=== PATIENT | male | born 1975 | race Caucasian/White ===

== ENCOUNTER → 2017-02-17 | Day surgery (SDC) | payer OTHER ==
[2017-02-06 12:37] LABS: BASOPHILS % 0.5 % (0.0-1.0); EOSINOPHILS # (AUTO) 0.2 (0.0-0.4); HEMATOCRIT 43.9 % (38.2-49.6); HEMOGLOBIN 15.5 g/dL (14.0-18.0); LYMPHOCYTES # (AUTO) 2.6 (1.0-3.2); MEAN CORPUSCULAR HEMOGLOBIN 30.9 pg (28-32); MEAN CORPUSCULAR HGB CONC 35.3 g/dL (31-35); MEAN CORPUSCULAR VOLUME 87.6 fL (81-99); MONOCYTES # (AUTO) 0.6 (0.2-0.8); NEUTROPHILS # (AUTO) 4.7 (2.1-6.9); NEUTROPHILS % 58.2 % (38.7-80.0); PLATELET COUNT 254 x10e3/uL (140-360); RED BLOOD COUNT 5.01 x10e6/uL (4.3-5.7); RED CELL DISTRIBUTION WIDTH 11.7 % (11.7-14.4)
[2017-02-06 13:05] LABS: ALBUMIN 3.9 g/dL (3.5-5.0); ALBUMIN/GLOBULIN RATIO 1.1 (0.8-2.0); ANION GAP 12.5 mmol/L (8-16); CALCIUM 9.2 mg/dL (8.4-10.2); CREATININE, SERUM 1.38 mg/dL (0.72-1.25); POTASSIUM 4.5 mmol/L (3.5-5.1)
[~2017-02-17] MED LIST: ACETAMINOPHEN 1000 MG/100 ML IV ONE; ACETAMINOPHEN/CODEINE 300MG - 30MG TAB ONE; AMPICILLIN SOD 1 GM/NS 50ML 50 ML IV ONE; ASPIRIN 325 MG TAB ONE; BELLADONNA/OPIUM 60 MG SUPP PR ONE; DEXAMETHASONE SOD PHOS INJ 4 MG/ML VIAL ONE; FENTANYL CITRATE/PF 100MCG/2 ML INJ ONE; FLUCONAZOLE100 MG PO; GENTAMICIN 80MG/NS 100 ML 200 ML IV ONE; HYDROMORPHONE 2MG/ML INJ ONE; IBUPROFEN 400 MG TAB PO ONE; IOPAMIDOL 610MG/1ML 300 MG/ML VIAL IV ONE; LIDOCAINE HCL 2% LOCAL INJ 5 ML SDV VIAL INJ ONE; LISINOPRIL10 MG PO; MEPERIDINE HCL INJ 50 MG/ML INJ ONE; MIDAZOLAM HCL 2 MG/2 ML VIAL ONE; MORPHINE SULFATE 2 MG/ML SYR ONE; NITROFURANTOIN100 MG PO; ONDANSETRON HCL INJ 2 MG/ML VIAL ONE; OXYBUTYNIN CHLORIDE 5 MG TAB PO ONE; PROPOFOL IV EMULSION 10 MG/ML 20 ML VIAL ONE; SEVOFLURANE INHAL SOLN 250 ML PEN BTL ONE; TRAMADOL HCL 50 MG TAB ONE
--- NOTE | 2017-02-17 08:04 | Diagnostic Imaging Report ---
PROCEDURE:X-RAY ABDOMEN - KUB COMPARISON:Abdomen one view 02/07/2017. INDICATIONS:PRE-OPERATIVE XRAY FOR KIDNEY STONE SURGERY FINDINGS: There is a non-obstructed bowel-gas pattern. Bilateral ureteral stents are present. There are no calcifications projected over the renal shadows, expected course of the ureters or bladder. There are no acute osseous abnormalities. The lung bases are clear. CONCLUSION: Bilateral ureteral stents. Dictated by: German Don M.D. on 02/17/2017 at 8:11 Electronically approved by: German Don M.D. on 02/17/2017 at 8:11
--- NOTE | 2017-04-01 05:20 | Operative Report ---
DATE OF PROCEDURE: February 17, 2017 PREOPERATIVE DIAGNOSES 1. Bilateral indwelling ureteral stents. 2. Nephrolithiasis. POSTOPERATIVE DIAGNOSES 1. Bilateral indwelling ureteral stents. 2. Nephrolithiasis. 3. Bilateral ureteral strictures. 4. Bilateral hydronephrosis due to ureteral strictures. OPERATIONS PERFORMED 1. Cystourethroscopy with complicated removal of bilateral indwelling ureteral stents (separate procedure performed for the diagnosis of stents done with separate scope). 2. Right ureteroscopy with dilation and calibration of ureteral stricture (separate procedure performed for diagnosis of the stricture). 3. Right flexible ureteropyeloscopy with stone manipulation and extraction (separate procedure performed for the right nephrolithiasis). 4. Cystourethroscopy with insertion of right indwelling ureteral stent (separate procedure performed to relieve the hydronephrosis). 5. Left ureteroscopy with dilation and calibration of ureteral stricture (separate procedure performed for diagnosis of the stricture). 6. Cystourethroscopy with insertion of left indwelling ureteral stent (separate procedure performed to relieve the hydronephrosis). 7. Radiological services for supervision and interpretation of ureteroscopy. 8. Interpretation of retrograde ureteropyelography. 9. Supervision of fluoroscopy. No radiologist present. ANESTHESIA: General. COMPLICATIONS: None. CLINICAL SUMMARY: Wolfgang Castaneda is a 41-year-old man who had a previous ureteral stone. 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 The patient underwent left ureteroscopy with manipulation and laser of a stone and placement of a stent. A ureteral injury occurred and there was extravasation. Right ureteroscopy was unsuccessful; however, stent was placed. The patient subsequently developed a complicated urinary tract infection and was placed on long-term broad-spectrum antibiotics. These antibiotics were culture-specific antibiotics and were continued upon my assumption of his urological care. The patient has been provided with an adequately long course of culture-specific antibiotics and is brought to the operating room today for removal of his stents and evaluation and management of his urolithiasis and urinary tract system. He is aware of the risks of bleeding, infection, injury to adjacent structures, need for additional procedures, and he elected to proceed. OPERATIVE PROCEDURE IN DETAIL: Informed consent was verified. Wolfgang Castaneda was properly identified, taken to the operating room, and placed on the cystoscopy table in the supine position. Anesthesia was uneventfully begun. The patient was then carefully and gently re-positioned in the dorsal lithotomy position with all pressure points carefully well padded. His genitalia were prepared and draped in the usual sterile fashion. The 22.5-Senegalese cystoscope sheath with the visual obturator in place was atraumatically inserted in patient's urethra. It was inserted down the unremarkable distal urethra through some hyperemia but no stricturing at the bulbar region. The sphincteric region was normal. The prostatic bed was normal and nonobstructive. We entered the patient's bladder where panendoscopy revealed that the right ureteral stent was crossing the trigone and intertwined with the left ureteral stent which seemed to be appropriately positioned. The stents appeared smaller than the normal sized stents that we utilized. A guidewire was then placed alongside the right stent up to the level of the patient's kidney. That stent was grasped, negotiated loose from its intertwined counterpart and extracted. This stent was 5-Senegalese in size and contained a fine film of sand and was plugged with calcification and encrustation. Semirigid ureteroscope was then inserted alongside the stent and guided into the right ureter. The right ureter was narrowed. We dilated across this narrowed portion at the level of the distal ureter. We then left a secondary guidewire. The flexible ureteroscope was then passed over the secondary guidewire to the proximal ureter where there was additional stricturing and hyperemia. We dilated across this region utilizing the flexible ureteroscope which we then negotiated into the renal pelvis. Panendoscopy of the intrarenal collecting system revealed a stone. This stone was grasped with a nitinol tipless basket and atraumatically extracted. We re-inserted the ureteroscope back up into the kidney and performed panendoscopy which revealed Lorenzo plaques throughout. A guidewire was then left in place and then we exited as we carefully examined this ureter. This ureter appeared to be rather reactive which we believe is related to the stent which was plugged and nonfunctional as well as the previous surgery. With cystoscopic and fluoroscopic guidance, an indwelling ureteral stent was then placed. It was coiled in patient's kidney as well as patient's bladder. The retaining suture was cut short. A guidewire was then placed into the left ureter alongside the existing stent and guided at the level of the patient's kidney. The stent was then grasped and fully removed and discarded. Semi-rigid ureteroscope was then placed alongside the guidewire up into the left ureter. The distal ureter was narrowed here as well. Secondary guidewire was placed. The flexible ureteroscope was then placed over the secondary guidewire and brought more proximally where we found similar findings to the right side with a narrowed right proximal ureter. We saw the region which we believed was the region that was traumatized and extravasated. We negotiated across this region and entered the patient's kidney where we identified hydronephrosis, upper collecting fullness, and Lorenzo plaques throughout. No suspicious and specific stones could be identified at this time on the left hand side. We carefully exited, and with cystoscopic and fluoroscopic guidance, a left-sided indwelling ureteral stent was then placed. It was coiled in the patient's kidney as well as the patient's bladder. The retaining suture was cut short. Interpretation of retrograde ureteropyelography: Contrast was instilled in retrograde fashion via the ureteroscope. There was hydronephrosis present on the left side as well as prominent and more mild hydronephrosis on the right hand side. The stents were in good position, coiled in the patient's kidneys as well as well as in the patient's bladder at the end the case. The patient's bladder was then drained. Cystoscope was withdrawn. A belladonna and opium suppository was placed revealing a small 20-g prostate, smooth, nonfluctuant without any nodules. The patient was then uneventfully reversed from anesthesia and taken to recovery room in stable condition. There were no complications of the procedure. The patient tolerated the procedure well. Explicit postop instructions were given and we will plan on returning to the operating room in several weeks to remove the patient's stents, perform bilateral ureteroscopy, and hopefully render the patient stone-free and stent-free. Job#: [id number] CF
== END | disposition home or self-care (01) ==
LOC: OR 05:14
PROVIDERS: ATTEND Urology
DX: N20.0 Calculus of kidney (principal); N13.1 Hydronephrosis with ureteral stricture, not elsewhere classified; Z46.6 Encounter for fitting and adjustment of urinary device; N28.89 Other specified disorders of kidney and ureter; Z87.440 Personal history of urinary (tract) infections; I12.9 Hypertensive chronic kidney disease with stage 1 through stage 4 chronic kidney disease, or unspecified chronic kidney disease; N18.9 Chronic kidney disease, unspecified; Z01.810 Encounter for preprocedural cardiovascular examination; Z01.812 Encounter for preprocedural laboratory examination
CPT/HCPCS: 36415; 52332; 52344; 52352; 74000; 74420; 80053; 83970; 84550; 85025; 88300; 93005; C1766; C2617; J0290; J1100; J1170; J1580; J2001; J2175; J2250; J2270; J2405; Q9967

== ENCOUNTER → 2017-03-07 | Day surgery (SDC) | payer OTHER ==
[~2017-03-07] MED LIST changes: -ACETAMINOPHEN 1000 MG/100 ML IV ONE; -ACETAMINOPHEN/CODEINE 300MG - 30MG TAB ONE; -AMPICILLIN SOD 1 GM/NS 50ML 50 ML IV ONE; -ASPIRIN 325 MG TAB ONE; -DEXAMETHASONE SOD PHOS INJ 4 MG/ML VIAL ONE; +GENTAMICIN 80MG/NS 100 ML 100 ML IV ONE; -GENTAMICIN 80MG/NS 100 ML 200 ML IV ONE; -HYDROMORPHONE 2MG/ML INJ ONE; -IBUPROFEN 400 MG TAB PO ONE; +LEVOFLOXACIN 500MG/D5W 100ML 100 ML IV ONE; -MEPERIDINE HCL INJ 50 MG/ML INJ ONE; -MORPHINE SULFATE 2 MG/ML SYR ONE; -OXYBUTYNIN CHLORIDE 5 MG TAB PO ONE; -TRAMADOL HCL 50 MG TAB ONE
--- NOTE | 2017-04-28 07:41 | Operative Report ---
DATE OF PROCEDURE: March 07, 2017 PREOPERATIVE DIAGNOSES: 1. Nephrolithiasis. 2. Bilateral indwelling ureteral stents. POSTOPERATIVE DIAGNOSES: 1. Nephrolithiasis. 2. Bilateral indwelling ureteral stents. OPERATIONS PERFORMED: 1. Cystourethroscopy with complicated removal of bilateral indwelling ureteral stents (separate procedure performed for the diagnosis of stents done with separate scope). 2. Bilateral ureteroscopy with stone manipulation (separate procedure performed for diagnosis of the stones done with a separate scope). 3. Radiological services for supervision and interpretation of ureteroscopy. 4. Interpretation of retrograde ureteropyelography. 5. Supervision of fluoroscopy, no radiologist present. ANESTHESIA: General. COMPLICATIONS: None. CLINICAL SUMMARY: Wolfgang Castaneda is a 41-year-old man with a urological history that is significant for bilateral urolithiasis. Patient has indwelling ureteral stents that were changed several weeks earlier by me. At that point in time, bilateral ureteral strictures were dilated. Stone management was also performed. The patient is brought to the operating room today in order to render him stent-free and stone-free. He is aware of the risks of bleeding, infection, injury to adjacent structures, need for additional procedures, and elected to proceed. OPERATIVE PROCEDURE IN DETAIL: Informed consent was verified. Wolfgang Castaneda was properly identified, taken to the operating room and placed on the cystoscopy table in the supine position. Anesthesia was uneventfully begun. The patient was then carefully and gently repositioned in dorsal lithotomy position with all pressure points well padded. His genitalia were prepared and draped in usual sterile fashion. The 22.5-Cypriot cystoscope sheath with the visual obturator in place was atraumatically inserted in patient's urethra. It was guided down the unremarkable urethra through the prostate bed which was unremarkable and into the patient's bladder where panendoscopy revealed some fine sand. Stents were noted to be emerging from both ureteral orifices. A guidewire was then placed alongside the stent and guided to the level of the patient's left kidney. The stent was then grasped, completely removed, and discarded. Flexible ureteroscope was then placed over the guidewire and guided to the level of the patient's kidney. Careful panendoscopy of the intrarenal collecting system revealed Lorenzo's plaques. There was some very fine sand that was noted. No stones significant in size were noted. We irrigated the fine sand loose from the mucosa and it should be easily passable. There were no stones that were large enough to be grasped by a basket. Because we irrigated to flush out all fine sand and we carefully examined the ureter as we exited, it exhibited no stricture, no injury, no extravasation, and no tumors. An identical procedure with identical findings was performed on right hand side. Interpretation of retrograde ureteropyelography: Contrast was instilled in retrograde fashion bilaterally. There were no tumors, there were no radiographically visible stones. Unobstructed drainage was observed bilaterally fluoroscopically. There was no hydronephrosis. The patient's bladder was then drained. Cystoscope was withdrawn. Belladonna and opium suppository was placed, and the patient was uneventfully reversed from anesthesia and taken to recovery room in stable condition. There were no complications to the procedure. The patient tolerated the procedure well. 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 We plan to follow the patient up on a long-term basis. We plan to perform metabolic stone workup and of course long-term urological followup. Job#: [id number]
== END | disposition home or self-care (01) ==
LOC: OR 08:55
PROVIDERS: ATTEND Urology
DX: N20.0 Calculus of kidney (principal); Z46.6 Encounter for fitting and adjustment of urinary device; N28.89 Other specified disorders of kidney and ureter; Z87.440 Personal history of urinary (tract) infections; I10 Essential (primary) hypertension
CPT/HCPCS: 52352; 74420; J1580; J1956; J2001; J2250; J2405; Q9967

== ENCOUNTER → 2017-03-26 | Outpatient (CLI) | payer OTHER ==
[~2017-03-26] MED LIST changes: -BELLADONNA/OPIUM 60 MG SUPP PR ONE; -FENTANYL CITRATE/PF 100MCG/2 ML INJ ONE; +FUROSEMIDE INJ 10 MG/ML 4 ML VIAL ONE; -GENTAMICIN 80MG/NS 100 ML 100 ML IV ONE; -IOPAMIDOL 610MG/1ML 300 MG/ML VIAL IV ONE; -LEVOFLOXACIN 500MG/D5W 100ML 100 ML IV ONE; -LIDOCAINE HCL 2% LOCAL INJ 5 ML SDV VIAL INJ ONE; -MIDAZOLAM HCL 2 MG/2 ML VIAL ONE; -ONDANSETRON HCL INJ 2 MG/ML VIAL ONE; -PROPOFOL IV EMULSION 10 MG/ML 20 ML VIAL ONE; -SEVOFLURANE INHAL SOLN 250 ML PEN BTL ONE
--- NOTE | 2017-03-26 20:08 | Diagnostic Imaging Report ---
Renal Scan with Lasix Washout Clinical information: 41 M with renal calculi. Recent ureteral stents removed 02/2017. Technique: Following intravenous administration of 10 mCi of Tc-99m MAG3, dynamic images of the kidneys in the posterior projection were obtained through 40 minutes. Lasix 40 mg was administered intravenously at 10 minutes post injection of the tracer. Report: Left kidney: Perfusion of the left kidney is prompt. The kidney has a reniform shape with a small cortical defect in the upper pole. Extraction of tracer from the blood pool is normal. Clearance of tracer from the renal parenchyma is prompt. The pelvicalyceal system is not dilated although prominent calyx is noted in the upper pole. Increased pooling of tracer is seen in the upper pole calyx. Drainage of tracer from the pelvicalyceal system is prompt and adequate prior to administration of Lasix. No significant stasis of tracer is seen within the left ureter. Right kidney: Perfusion to the right kidney is prompt. The right kidney has a normal reniform shape. The right kidney is slightly smaller than the left kidney. Extraction of tracer by the renal parenchyma is normal. Clearance of tracer from the renal parenchyma is prompt. The pelvicalyceal system is not dilated. Physiologic pooling of tracer within the pelvicalyceal system is seen. Drainage of tracer from the pelvicalyceal system is prompt and adequate prior to administration of Lasix. No significant stasis of tracer is seen within the right ureter. Differential renal function: The left kidney contributes 52% of total renal function and the right kidney contributes 48% (normal 43-57%). Impression: 1. The function of the left kidney is generally normal. A very small scar is seen in the upper pole and is associated with a prominent calyx. No hydronephrosis is present. No physiologically significant obstruction of the renal collecting system is present. 2. The function of the right kidney is generally normal. No hydronephrosis is present. No physiologically significant obstruction of the renal collecting system is present. 3. The differential renal function is preserved. Signed by: Dr. Melody Gregorio M.D. on 03/26/2017 8:04 PM
== END ==
LOC: NM 13:38
PROVIDERS: ATTEND Urology
DX: N20.0 Calculus of kidney (principal)
CPT/HCPCS: 78708; A9562; J1940

== ENCOUNTER → 2017-10-20 | Outpatient (CLI) | payer OTHER ==
[~2017-10-20] MED LIST changes: -FUROSEMIDE INJ 10 MG/ML 4 ML VIAL ONE
--- NOTE | 2017-10-20 19:41 | Diagnostic Imaging Report ---
Renal Scan with Lasix Washout Clinical information: 42 M with hydronephrosis and renal calculi Comparison: Prior renal scan with Lasix 03/26/2017 Technique: Following intravenous administration of 10 mCi of Tc-99m MAG3, dynamic images of the kidneys in the posterior projection were obtained through 40 minutes. Lasix 40 mg was administered intravenously at 10 minutes post injection of the tracer. Report: Left kidney: Perfusion of the left kidney is prompt. The kidney has a reniform shape with a small cortical defect in the upper pole. Extraction of tracer from the blood pool is normal. Clearance of tracer from the renal parenchyma is prompt. The pelvicalyceal system is not dilated although prominent calyx is noted in the upper pole. Increased pooling of tracer is seen in the upper pole calyx. Drainage of tracer from the pelvicalyceal system is prompt and adequate prior to administration of Lasix. No significant stasis of tracer is seen within the left ureter. Right kidney: Perfusion to the right kidney is prompt. The right kidney has a normal reniform shape. The right kidney is slightly smaller than the left kidney. Extraction of tracer by the renal parenchyma is normal. Clearance of tracer from the renal parenchyma is prompt. The pelvicalyceal system is not dilated. Physiologic pooling of tracer within the pelvicalyceal system is seen. Drainage of tracer from the pelvicalyceal system is prompt and adequate prior to administration of Lasix. No significant stasis of tracer is seen within the right ureter. Differential renal function: The left kidney contributes 52% of total renal function and the right kidney contributes 48% (normal 43-57%), previously left 52% and right kidney 48% also. Impression: 1. The function of the left kidney is generally normal. A very small scar is seen in the upper pole and is associated with a prominent calyx. No hydronephrosis is present. No physiologically significant obstruction of the renal collecting system is present. The appearance of the kidney and its function and drainage pattern are unchanged compared to the prior renal scan with Lasix of 03/26/2017. 2. The function of the right kidney is generally normal. No hydronephrosis is present. No physiologically significant obstruction of the renal collecting system is present. The appearance of the kidney and its function and drainage pattern are unchanged compared to the prior renal scan with Lasix of 03/26/2017. 3. The differential renal function is preserved and is also unchanged compared to the prior renal scan with Lasix of 03/26/2017. Signed by: Dr. Melody Gregorio M.D. on 10/20/2017 7:37 PM
== END ==
LOC: NM 13:57
PROVIDERS: ATTEND Urology
DX: N13.5 Crossing vessel and stricture of ureter without hydronephrosis (principal)
CPT/HCPCS: 78708; A9562

== ENCOUNTER → 2018-03-31 | Day surgery (SDC) | payer OTHER ==
[~2018-03-31] MED LIST changes: +BUPIVACAINE 0.25% 30ML SDV INJ ONE; +CLINDAMYCIN 300MG 50 ML IV ONE; +FENTANYL CITRATE/PF 100MCG/2 ML INJ ONE; +KETOROLAC TROMETHAMINE 30 MG/ML VIAL ONE; +LEVOFLOXACIN 500MG/D5W 100ML 100 ML IV ONE; +LIDOCAINE HCL 2% LOCAL INJ 5 ML SDV VIAL INJ ONE; +NEOSTIGMINE 1 MG/ML 10ML VIAL ONE; +PROPOFOL IV EMULSION 10 MG/ML 20 ML VIAL ONE; +TERBINAFINE HC250 MG PO
--- OUTSIDE RECORDS SUMMARY | 2018-03-31 05:15 | XMS REPORT ---
Author Author [facility] Address Unknown Phone Unavailable Care Team Providers Care Gardening Instructor Name Role Phone JUDITH NAIK Unavailable Unavailable Rani FLOWERS Unavailable Unavailable Problems This patient has no known problems. Allergies, Adverse Reactions, Alerts This patient has no known allergies or adverse reactions. Medications This patient has no known medications. Results Test Description Test Time Test Comments Text Results Atomic Results Result Comments RENAL SCAN W/LASIX 2017-10-20 19:25:00 [place] [address] Patient Name: SOPHIA CASTRO MR #: [id number] : 1975 Age/Sex: 42/M Req #: [id number] Adm Physician: Ordered by: JUDITH NAIK MD Report #: [id number] Location: [place] Room/Bed: Procedure: [id number] NM/RENAL SCAN W/LASIX Exam Date: 10/20/17 Exam Time: 1420 REPORT STATUS: Signed Renal Scan with Lasix Washout Clinical information: 42 M with hydronephrosis and renal calculi Comparison: Prior renal scan with Lasix 03/26/2017 Technique: Following intravenous administration of 10 mCi of Tc- 99m MAG3, dynamic images of the kidneys in the posterior projection were obtained through 40 minutes. Lasix 40 mg was administered intravenously at 10 minutes post injection of the tracer. Report: Left kidney: Perfusion of the left kidney is prompt. The kidney has a reniform shape with a small cortical defect in the upper pole. Extraction of tracer from the blood pool is normal. Clearance of tracer from the renal parenchyma is prompt. The pelvicalyceal system is not dilated although prominent calyx is noted in the upper pole. Increased pooling of tracer is seen in the upper pole calyx. Drainage of tracer from the pelvicalyceal system is prompt and adequate prior to administration of Lasix. No significant stasis of tracer is seen within the left ureter. Right kidney: Perfusion to the right kidney is prompt. The right kidney has a normal reniform shape. The right kidney is slightly smaller than the left kidney. Extraction of tracer by the renal parenchyma is normal. Clearance of tracer from the renal parenchyma is prompt. The pelvicalyceal system is not dilated. Physiologic pooling of tracer within the pelvicalyceal system is seen. Drainage of tracer from the pelvicalyceal system is prompt and adequate prior to administration of Lasix. No significant stasis of tracer is seen within the right ureter. Differential renal function: The left kidney contributes 52% of total renal function and the right kidney contributes 48% (normal 43-57%), previously left 52% and right kidney 48% also. Impression: 1. The function of the left kidney is generally normal. A very small scar is seen in the upper pole and is associated with a prominent calyx. No hydronephrosis is present. No physiologically significant obstruction of the renal collecting system is present. The appearance of the kidney and its function and drainage pattern are unchanged compared to the prior renal scan with Lasix of 03/26/2017. 2. The function of the right kidney is generally normal. No hydronephrosis is present. No physiologically significant obstruction of the renal collecting system is present. The appearance of the kidney and its function and drainage pattern are unchanged compared to the prior renal scan with Lasix of 03/26/2017. 3. The differential renal function is preserved and is also unchanged compared to the prior renal scan with Lasix of 03/26/2017. Signed by: Dr. Homar Gregorio M.D. on 10/20/2017 7:37 PM Dictated By: HOMAR GREGORIO MD 36 Transcribed By: JORGE on 10/20/171936 COPY TO: JUDITH NAIK MD RENAL SCAN W/LASIX [facility] [address] [place] [address] Patient Name: SOPHIA CASTRO MR #: [id number] : 1975 Age/Sex: 41/M Req #: [id number] Adm Physician: Ordered by: JUDITH NAIK MD Report #: [id number] Location: [place] Room/Bed: Procedure: [id number] NM/RENAL SCAN W/LASIX Exam Date: 03/26/17 Exam Time: 1400 REPORT STATUS: Signed Renal Scan with Lasix Washout Clinical information: 41 M with renal calculi. Recent ureteral stents removed 02/2017. Technique: Following intravenous administration of 10 mCi of Tc-99m MAG3, dynamic images of the kidneys in the posterior projection were obtained through 40 minutes. Lasix 40 mg was administered intravenously at 10 minutes post injection of the tracer. Report: Left kidney: Perfusion of the left kidney is prompt. The kidney has a reniform shape with a small cortical defect in the upper pole. Extraction of tracer from the blood pool is normal. Clearance of tracer from the renal parenchyma is prompt. The pelvicalyceal system is not dilated although prominent calyx is noted in the upper pole. Increased pooling of tracer is seen in the upper pole calyx. Drainage of tracer from t he pelvicalyceal system is prompt and adequate prior to administration of Lasix. No significant stasis of tracer is seen within the left ureter. Right kidney: Perfusion to the right kidney is prompt. The right kidney has a normal reniform shape. The right kidney is slightly smaller than the left kidney. Extraction of tracer by the renal parenchyma is normal. Clearance of tracer from the renal parenchyma is prompt. The pelvicalyceal system is not dilated. Physiologic pooling of tracer within the pelvicalyceal system is seen. Drainage of tracer from the pelvicalyceal system is prompt and adequate prior to administration of Lasix. No significant stasis of tracer is seen within the right ureter. Differential renal function: The left kidney contributes 52% of total renal function and the right kidney contributes 48% (normal 43-57%). Impression: 1. The function of the left kidney is generally normal. A very small scar is seen in the upper pole and is ass ociated with a prominent calyx. No hydronephrosis is present. No physiologically significant obstruction of the renal collecting system is present. 2. The function of the right kidney is generally normal. No hydronephrosis is present. No physiologically significant obstruction of the renal collecting system is present. 3. The differential renal function is preserved. Signed by: Dr. Homar Gregorio M.D. on 03/26/2017 8:04 PM Dictated By: HOMAR GREGORIO MD 03 Transcribed By: JORGE on 03/26/172003 COPY TO: JUDITH CLAYTON MD ABDOMEN-1VIEW (KUB) [place] [address] Patient Name: SOPHIA CASTRO MR #: [id number] : 1975 Age/Sex: 41/M Req #: [id number] Adm Physician: Ordered by: JUDITH NAIK MD Report #: [id number] Location: OR Room/Bed: Procedure: [id number] DX/ABDOMEN-1VIEW (KUB) Exam Date: 02/17/17 Exam Time: 0617 REPORT STATUS: Signed PROCEDURE: X-RAY ABDOMEN - KUB COMPARISON: Abdomen one view 02/07/2017. INDICATIONS: PRE-OPERATIVE XRAY FOR KIDNEY STONE SURGERY FINDINGS: There is a non-obstructed bowel-gas pattern. Bilateral ureteral stents are present. There are no calcifications projected over the renal shadows, expected course of the ureters or bladder. There are no acute osseous abnormalities. The lung bases are clear. CONCLUSION: Bilateral ureteral stents. Dictated by: Ever Sorensen M.D. on 02/17/2017 at 8:11 Electronically approved by: Ever Sorensen M.D. on 02/17/2017 at 8:11 Dictated By: EVER SORENSEN MD 0 Transcribed By: CARLIE on 02/17/17810 COPY TO: JUDITH NAIK MD ABDOMEN-1VIEW (KUB) [place] [address] Patient Name: SOPHIA CASTRO MR #: [id number] : 1975 Age/Sex: 41/M Req #: [id number] Adm Physician: Ordered by: ELIZA CHO PROCESS SAFETY MANAGER Report #: [id number] Location: ER Room/Bed: Procedure: [id number] DX/ABDOMEN-1VIEW (KUB) Exam Date: 02/07/17 Exam Time: 1335 REPORT STATUS: Signed PROCEDURE: X-RAY ABDOMEN - KUB COMPARISON: None. INDICATIONS: ONGOING KIDNEY PAIN FINDINGS: There are bilateral double-J ureteral stents. Vague calcification is noted adjacent to the superior double-J on the right side. On the left side adjacent to the superior double-J are two surgical clips. There are no dilated loops of bowel to suggest obstruction. There are no masses. There is no evidence of free air. No acute osseous abnormalities are present. CONCLUSION: 1. No acute abdominal abnormality. 2. Double-J ureteral stents as described above. Camilo Rick D.O. Dictated by: Camilo Rick D.O. on 02/07/2017 at 14:11 Electronically approved by: Camilo Rick D.O. on 02/07/2017 at 14:11 Dictated By: CAMILO RICK DO 1411 Transcribed By: CARLIE on 02/07/17 1411 COPY TO: ELIZA CHO NP
[2018-03-31 06:08] LABS: BASOPHILS % 0.5 % (0.0-1.0); EOSINOPHILS # (AUTO) 0.1 (0.0-0.4); EOSINOPHILS % 1.6 % (0.0-6.0); HEMATOCRIT 43.5 % (38.2-49.6); HEMOGLOBIN 15.7 g/dL (14.0-18.0); LYMPHOCYTES # (AUTO) 2.4 (1.0-3.2); LYMPHOCYTES % 37.5 % (18.0-39.1); MEAN CORPUSCULAR HEMOGLOBIN 31.5 pg (28-32); MEAN CORPUSCULAR HGB CONC 36.1 g/dL (31-35); MEAN CORPUSCULAR VOLUME 87.3 fL (81-99); MONOCYTES # (AUTO) 0.6 (0.2-0.8); MONOCYTES % 9.3 % (4.4-11.3); NEUTROPHILS # (AUTO) 3.3 (2.1-6.9); NEUTROPHILS % 50.8 % (38.7-80.0); PLATELET COUNT 262 x10e3/uL (140-360); RED BLOOD COUNT 4.98 x10e6/uL (4.3-5.7); RED CELL DISTRIBUTION WIDTH 11.6 % (11.7-14.4)
[2018-03-31 06:34] LABS: ALANINE AMINOTRANSFERASE 22 IU/L (0-55); ALBUMIN 4.2 g/dL (3.5-5.0); ALBUMIN/GLOBULIN RATIO 1.3 (0.8-2.0); ALKALINE PHOSPHATASE 95 IU/L (40-150); BLOOD UREA NITROGEN 15 mg/dL (7-26); BUN/CREATININE RATIO 14 (6-25); CALCIUM 9.2 mg/dL (8.4-10.2); CARBON DIOXIDE 23 mmol/L (22-29); CHLORIDE 109 mmol/L (98-107); CREATININE, SERUM 1.06 mg/dL (0.72-1.25); EST GLOMERULAR FILTRATION RATE > 60 ML/MIN (60-); GLUCOSE 94 mg/dL (74-118); SODIUM 140 mmol/L (136-145)
[2018-03-31 09:15] VITALS: BP 105/64
--- NOTE | 2018-03-31 10:42 | Operative Report ---
DATE OF PROCEDURE: March 31, 2018 PREOPERATIVE DIAGNOSIS: Desires sterilization. POSTOPERATIVE DIAGNOSIS: Desires sterilization. OPERATIONS PERFORMED 1. Bilateral vasectomy. 2. Regional nerve blocks (separate procedure performed for the postoperative pain control not required for the actual purpose of surgery, which was done under general anesthesia). ANESTHESIA: General. COMPLICATIONS: None. CLINICAL SUMMARY: Wolfgang Castaneda is a 42-year-old man who has 5 children with his . They desires permanent sterilization. They are aware of the risks of bleeding, infection, injury to adjacent structures, chronic pain, remote pain, permanence of this procedure, as well as the risk of should other contraception not be utilized prior to sterilization taking effect in the next several months. They understood all these risks and elected to proceed. OPERATIVE PROCEDURE IN DETAIL: Informed consent was verified. Wolfgang Castaneda was properly identified and taken to the operating room and placed on the operating table in the supine position. Anesthesia was uneventfully begun. The patient's genitalia were prepared and draped in the usual sterile fashion. The procedure was first performed on left hand side and then performed on the right hand side with identical results. The left vas deferens was isolated. The dissecting forceps were utilized to newby the skin and make an incision. The vas then carefully isolated. The distal stump was doubly hemoclipped and doubly hemoclipped on the patient's side and divided. The vas mucosa was minimally scored with electrocautery. The proximal stump was then doubly hemoclipped and then divided. The mucosa of the vas was minimally scored with electrocautery. Marcaine without epinephrine was utilized to infiltrate the spermatic cord 1.5 inches away from the distal resection. This was done for postoperative pain control, and not required as the actual purpose for surgery, which was done under general anesthesia. Marcaine was then infiltrated circumferentially around the incision. Irrigation was performed. Hemostasis was verified. The testis was brought back down into its normal anatomical position. An identical procedure was performed on the right hand side with identical results. Bacitracin ointment and triple antibiotic ointment was applied. Dressings were applied. The patient was uneventfully reversed from anesthesia and taken to the recovery room in stable condition. There were no complications to the procedure. He tolerated the procedure well. Explicit postop instructions were given. Will follow the patient up in the office. Job#: [id number]
== END | disposition home or self-care (01) ==
LOC: OR 05:11
PROVIDERS: ATTEND Urology
DX: Z30.2 Encounter for sterilization (principal); N20.0 Calculus of kidney; M54.2 Cervicalgia; M54.9 Dorsalgia, unspecified; I10 Essential (primary) hypertension; Z88.1 Allergy status to other antibiotic agents; Z88.8 Allergy status to other drugs, medicaments and biological substances
CPT/HCPCS: 36415; 55250; 80053; 83970; 84550; 85025; 88302; 93005; J1885; J1956; J2001; J2704; J2710

== ENCOUNTER → 2018-12-07 | Outpatient (CLI) | payer OTHER ==
[~2018-12-07] MED LIST changes: -BUPIVACAINE 0.25% 30ML SDV INJ ONE; -CLINDAMYCIN 300MG 50 ML IV ONE; -FENTANYL CITRATE/PF 100MCG/2 ML INJ ONE; -KETOROLAC TROMETHAMINE 30 MG/ML VIAL ONE; -LEVOFLOXACIN 500MG/D5W 100ML 100 ML IV ONE; -LIDOCAINE HCL 2% LOCAL INJ 5 ML SDV VIAL INJ ONE; -NEOSTIGMINE 1 MG/ML 10ML VIAL ONE; -PROPOFOL IV EMULSION 10 MG/ML 20 ML VIAL ONE
--- NOTE | 2018-12-07 14:20 | Diagnostic Imaging Report ---
Exam: KUB - 2 views Indication: Renal calculi Comparison: KUB of 02/17/2017 Findings: Interval removal of bilateral internal nephroureteral stents. No radiographically apparent renal calculi. Osseous structures appear unremarkable. Nonobstructive bowel gas pattern. No free air. Impression: Interval removal of bilateral internal nephroureteral stents. No radiographically apparent renal calculi. Signed by: Walt Rodriguez MD on 12/07/2018 2:17 PM
== END ==
LOC: RAD 13:58
PROVIDERS: ATTEND Urology
DX: N20.0 Calculus of kidney (principal)
CPT/HCPCS: 74018